=== PATIENT | male | born 1985 | race Caucasian/White ===

== ENCOUNTER 2019-06-04 17:15 | Emergency (ER) | payer MEDICAID ==
[~2019-06-04] VITALS: Ht 185.4 cm; Wt 124.7 kg
[2019-06-04 17:22] VITALS: BP 161/96
--- NOTE | 2019-06-04 17:23 | NUR ---
PT AMBULATED TO ER BED 3
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
[2019-06-04] MEDS ORDERED: LIDOCAINE MPF 1% 10 MG/ML VIAL INJ ONE (18:10)
[2019-06-04 18:37] VITALS: BP 161/96
== END 2019-06-04 18:36 | disposition home or self-care (01) ==
LOC: MED 17:15
DX: S63.281A Dislocation of proximal interphalangeal joint of left index finger, initial encounter (principal); Y04.0XXA Assault by unarmed brawl or fight, initial encounter; Y93.89 Activity, other specified; Y92.89 Other specified places as the place of occurrence of the external cause; Y99.8 Other external cause status
CPT/HCPCS: 26770; 73130; 99284; J2001; Q0092; 99283

== ENCOUNTER 2020-10-12 16:04 | Emergency (ER) | payer MEDICAID ==
[~2020-10-12] VITALS: Ht 185.4 cm; Wt 141.7 kg
[2020-10-12 16:20] VITALS: BP 148/96
--- NOTE | 2020-10-12 16:23 | NUR ---
MINH. PT PROVIDED URINE CUP
--- NOTE | 2020-10-12 16:30 | NUR ---
Patient ambulated to bed 4. RN evaluating the patient at bedside.
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
--- NOTE | 2020-10-12 16:52 | NUR ---
XIN SHARMA BEDSIDE EVALUATING PT
[2020-10-12] MEDS ORDERED: KETOROLAC 15 MG/ML VIAL IM ONE ×2 (16:55)
--- NOTE | 2020-10-12 17:06 | NUR ---
Patient taken to x-ray via wheelchair by tech.
[2020-10-12] MEDS ORDERED: NAPR-1703 PO (17:40)
[2020-10-12] MEDS ORDERED: CAPS1ADH5 TP (17:40)
[2020-10-12 17:57] VITALS: BP 148/96
--- NOTE | 2020-10-12 17:59 | NUR ---
Patient discharged with v/s stable. Written and verbal after care instructions given LOW BACK SPRAIN and explained. Patient alert, oriented and verbalized understanding of instructions. Ambulatory with steady gait. All questions addressed prior to discharge. ID band removed. Patient advised to follow up with PMD. Rx of CAPSAICIN/MENTHOL 1 UNIT TOPICAL DAILY PRN PAIN, AND NAPROXEN 375MG PO BID PRN PAIN given. Patient educated on indication of medication including possible reaction and side effects. Opportunity to ask questions provided and answered.
== END 2020-10-12 17:59 | disposition home or self-care (01) ==
LOC: MED 16:04
DX: S39.012A Strain of muscle, fascia and tendon of lower back, initial encounter (principal); X58.XXXA Exposure to other specified factors, initial encounter; Y93.89 Activity, other specified; Y92.89 Other specified places as the place of occurrence of the external cause; Y99.8 Other external cause status
CPT/HCPCS: 72100; 81002; 96372; 99284; J1885

== ENCOUNTER 2021-11-03 14:40 | Emergency (ER) | payer MEDICAID ==
[~2021-11-03] VITALS: Ht 185.4 cm; Wt 138.5 kg
[~2021-11-03 14:40] MED LIST: CAPS1ADH5 TP; NAPR-1703 PO
[2021-11-03 14:53] VITALS: BP 139/89
--- NOTE | 2021-11-03 15:46 | NUR ---
ELIZABETH COLLECTED AND GAVE TO STORE SALES LEADER CYNTHIA
--- NOTE | 2021-11-03 15:52 | NUR ---
STREP SWABS COLLECTED AND WALKED TO LAB. GAVE SWABS TO CYNTHIA
[2021-11-03] MEDS ORDERED: IBUP-1842 PO (16:43)
[2021-11-03] MEDS ORDERED: PENI500T20 PO (16:43)
--- NOTE | 2021-11-03 17:19 | NUR ---
Patient discharged with v/s stable. Written and verbal after care instructions given and explained. Patient alert, oriented and verbalized understanding of instructions. Ambulatory with steady gait. All questions addressed prior to discharge. ID band removed. Patient advised to follow up with PMD. Rx of Ibuprofen, Potassium given. Patient educated on indication of medication including possible reaction and side effects. Opportunity to ask questions provided and answered.
== END 2021-11-03 17:19 | disposition home or self-care (01) ==
LOC: MED 14:40
DX: J02.9 Acute pharyngitis, unspecified (principal); Z20.822 Contact with and (suspected) exposure to COVID-19; B96.89 Other specified bacterial agents as the cause of diseases classified elsewhere
CPT/HCPCS: 87081; 99283

== ENCOUNTER 2022-01-02 01:05 | Emergency (ER) | payer MEDICAID ==
[~2022-01-02] VITALS: Ht 185.4 cm; Wt 134.3 kg
[~2022-01-02 01:05] MED LIST changes: +IBUP-1842 PO; +PENI500T20 PO
[2022-01-02 01:09] VITALS: BP 146/86
--- NOTE | 2022-01-02 02:25 | NUR ---
Patient ambulated to bed 8.
--- NOTE | 2022-01-02 02:30 | NUR ---
RECEIVED IN BED 8 WITH C/O COUGH X 2 WEEKS. PMHx: DENIES
--- NOTE | 2022-01-02 02:45 | NUR ---
Dr. Mendez examining patient.
[2022-01-02] MEDS ORDERED: AMOX1TAB8 PO (03:23)
[2022-01-02] MEDS ORDERED: BENZ200C4 PO (03:23)
[2022-01-02 03:34] VITALS: BP 146/86
--- NOTE | 2022-01-02 03:34 | NUR ---
Patient discharged with v/s stable. Written and verbal after care instructions given and explained. Patient alert, oriented and verbalized understanding of instructions. Ambulatory with steady gait. All questions addressed prior to discharge. ID band removed. Patient advised to follow up with PMD. Rx of AMOXICILLIN, BENZONATATE given. Patient educated on indication of medication including possible reaction and side effects. Opportunity to ask questions provided and answered.
== END 2022-01-02 03:34 | disposition home or self-care (01) ==
LOC: MED 01:05
DX: J20.9 Acute bronchitis, unspecified (principal); F17.200 Nicotine dependence, unspecified, uncomplicated
CPT/HCPCS: 71045; 99283; Q0092

== ENCOUNTER 2022-02-23 09:27 | Emergency (ER) | payer MEDICAID ==
[~2022-02-23] VITALS: Ht 185.4 cm; Wt 136.1 kg
[~2022-02-23 09:27] MED LIST changes: +AMOX1TAB8 PO; +BENZ200C4 PO
[2022-02-23 09:34] VITALS: BP 141/89
--- NOTE | 2022-02-23 10:01 | NUR ---
36M presents to ED with c/o SOB for "a few months." Pt reports recent worsening SOB in cold weather causing him to cough. Pt states he took DayQuil this morning at 0630 with no relief. Pt denies chest pain, dizziness or pain. Upon assessment, O2 sat 96%, wheezes noted in bilateral upper lobes during auscultation. Pt changed into gown and placed on bedside manager monitoring.
--- NOTE | 2022-02-23 10:55 | NUR ---
X ray at bedside.
[2022-02-23] MEDS ORDERED: ALBU0.0912 IH (11:09)
[2022-02-23] MEDS ORDERED: PRED20TA5 PO (11:09)
[2022-02-23] MEDS ORDERED: SPAC1DEV MC (11:09)
[2022-02-23 11:18] VITALS: BP 132/76
--- NOTE | 2022-02-23 11:18 | NUR ---
Patient discharged with v/s stable. Written and verbal after care instructions Bronchospasm given and explained. Patient alert, oriented and verbalized understanding of instructions. Ambulatory with steady gait. All questions addressed prior to discharge. ID band removed. Patient advised to follow up with PMD. Rx of Albuterol Sulfate, Prednisone, and Inhaler given. Patient educated on indication of medication including possible reaction and side effects. Opportunity to ask questions provided and answered.
== END 2022-02-23 11:18 | disposition home or self-care (01) ==
LOC: MED 09:27
DX: J98.01 Acute bronchospasm (principal); Z79.899 Other long term (current) drug therapy; Z79.1 Long term (current) use of non-steroidal anti-inflammatories (NSAID); Z79.2 Long term (current) use of antibiotics
CPT/HCPCS: 71045; 99283; Q0092